=== PATIENT | male | born 1960 | race American Indian/Alaskan Native ===

== ENCOUNTER 2017-06-01 08:57 | Day surgery (SDC) | payer BC ==
[2017-06-01 09:12] VITALS: BMI 31.8
[2017-06-01] MEDS ORDERED: Absorbable Gelatin Sponge Size 100 ONE (11:08)
[2017-06-01] MEDS ORDERED: Bupivacaine 0.5% Inj(30mL) ONE (11:08)
[2017-06-01] MEDS ORDERED: Thrombin Topical 5,000 Int Units Spray Kit ONE (11:08)
[2017-06-01] MEDS ORDERED: Lidocaine 4% (Laryng-O-Jet) Kit MM ONE (11:23)
[2017-06-01] MEDS ORDERED: Propofol 10 mg/ml Inj (20 ML) ONE (11:23)
[2017-06-01] MEDS ORDERED: Succinylcholine 200 mg/10 ml Inj IV ONE (11:23)
[2017-06-01] MEDS ORDERED: Rocuronium 10 mg/ml (5 ml) ONE (11:23)
[2017-06-01] MEDS ORDERED: Midazolam 2 MG/2 ML VIAL ONE ×2 (11:47→14:02)
[2017-06-01] MEDS ORDERED: Lactated Ringer's 1,000 ML IV ONE ×2 (11:55→13:38)
[2017-06-01] MEDS ORDERED: Bupivacaine HCl 0.5% PF (30 ml) Inj ONE (12:16)
[2017-06-01] MEDS ORDERED: Desflurane Inhalation Anesthetic Liq (240 ml) ONE (12:25)
[2017-06-01] MEDS: MethylPREDNISolone Depo 40 mg/ml Inj ONE ×2 (13:01→13:30)
[2017-06-01] MEDS ORDERED: Bacitracin Opht OINT 3.5GM OU ONE (13:35)
[2017-06-01] MEDS ORDERED: Oxycodone/Acetaminophen 5/325 mg Tab PO PRN (13:49)
--- NOTE | 2017-06-01 13:57 | CP.PCM.PN ---
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 Patient counseled on the risks of addiction, physical or psychological dependence, and overdose associated with opioid drugs and the danger of taking opioid drugs with alcohol and other central nervous system depressants, and cautioned patient on storage and disposal. Objective - Vital Signs/Intake and Output Vital Signs (last 24 hours): Temp Pulse Resp BP Pulse Ox 97.6 F 70 18 159/86 H 97 06/01/17 09:56 06/01/17 10:04 06/01/17 09:56 06/01/17 09:56 06/01/17 09:56 Intake and Output: 06/01/17 06/01/17 06:59 18:59 Intake Total 1000 Balance 1000 - Medications Medications: Current Medications Oxycodone/Acetaminophen (Percocet 5/325 Mg Tab) 1 tab PO Q4 PRN PRN Reason: Pain, moderate (4-7) Stop: 06/04/17 13:50
[2017-06-01] MEDS ORDERED: Midazolam 2 MG/2 ML VIAL IVP PRN (14:02)
[2017-06-01] MEDS ORDERED: HYDROmorphone 0.5 mg/0.5 ml ISec IVP PRN (14:02)
--- NOTE | 2017-06-01 14:08 | PCM.ANESB4 ---
Infraclavicular Block - Femoral Nerve Block Date of Procedure: 06/01/17 Anesthesiologist: Xiomy Pre-Procedure Diagnosis: Left carpal tunnel syndrome Post-Procedure Diagnosis: Same Procedure Performed: Brachial Plexus at the Infraclavicular area Left - Procedure Infraclavicular Block: The procedure was explained to the patient that it is for the post-operative pain management. Consent was obtained after a thorough discussion with the patient regarding the benefits and possible complications of local anesthetic block of the brachial plexus at the infraclavicular area. The patient was brought to the operating room and standard monitors were applied. Time-out was held with the circulating nurse to confirm the correct surgery and the appropriate block. Under general anesthesia at request of patient after increased risk of intraneural injection while under general anesthesia explained , patient's head was gently rotated away from the operative ____left____ shoulder and the area medial to the coracoid process and inferior to the clavicle was carefully palpated. The ultrasound transducer was then applied to the skin in the transverse plane and the brachial plexus was visualized surrounding the axillary artery and deep to the pectoralis major and minor muscles. After thorough identification, this area was prepped with Betadine solution three times and 1 % Lidocaine was injected subcutaneously for topical anesthesia. At this point, a #21 gauge Stimuplex 4-inch needle was inserted cephalad to the ultrasound transducer and inferior to the clavicle in-plane towards the posterior aspect of the axillary artery. Needle advancement was performed carefully under ultrasound visualization. Nerve stimulator was used and twitch of the affected extremity including fingers, hand, wrist and elbow was obtained at current of __0.4___MA. After repeated negative aspiration, __2___cc of __0.5_ __% ____bupivicaine with 1:200,000 epinephrine was injected and this was followed with __28____ cc of __0.5 % ____bupivicaine with 1:200, 000 epinephrine . Under ultrasound guidance the local anesthetics were observed surrounding the cords of the brachial plexus. The needle was removed intact and sterile dressing was applied. The patient had stable vital signs. The patient tolerated the infraclavicular block of the brachial plexus well with stable vital signs was prepared for subsequent surgery.
[2017-06-01] MEDS ORDERED: Lactated Ringer's 1,000 ML IV SCH (14:15)
--- NOTE | 2017-06-01 14:25 | PCM.SURG1 ---
Surgeon's Initial Post Op Note - Surgeon's Notes Surgeon: Andreina Medical Terminologist: SHAQUILLE Nichols Type of Anesthesia: General Endo, Block Regional Anesthesia Administered By: DR Nathaniel Leahy Pre-Operative Diagnosis: Refractorty lateral epicondylitis L elbow. Carpal tunnel syndrome L wrist Operative Findings: lateral epicondylitis (refractory). carpal tunnel syndrome L wrist Post-Operative Diagnosis: as above. lipoma carpal canal. tenosynovitis flexor tendons. compression median nerve. refractory latral epicondylitis Operation Performed: release L lateral epicondylar musculature. \release L carpal tunnel. partial median neurolysis. partial flexor tenosynovectomy. release transverse carpal ligament. release lateral epindylar muscutre. partial lateral epicondylectomy Specimen/Specimens Removed: tenosynovium. epineurium. carpal liagment ( transverse) Estimated Blood Loss: EBL {In ML}: 5 Blood Products Given: N/A Drains Used: No Drains Post-Op Condition: Good Date of Surgery/Procedure: 06/01/17 Time of Surgery/Procedure: 12:30 (time in room/ 11:40/larry indcution time 1140)
[2017-06-01 15:00] VITALS: RESP 18
[2017-06-01 18:27] VITALS: BP 154/90; PULSE 79; TEMP 97.4; O2SAT 97
--- NOTE | 2017-06-03 15:28 | OP ---
PROCEDURE DATE: 06/01/2017 PREOPERATIVE DIAGNOSIS: 1. Refractory left lateral epicondylitis, left elbow. 2. Carpal tunnel syndrome, left wrist. POSTOPERATIVE DIAGNOSES: 1. Refractory lateral epicondylitis, left elbow. 2. Carpal tunnel syndrome. 3. Lipoma, carpal canal. 4. Tenosynovitis, flexor tendons. 5. Compression of the median nerve with inflammation of the epineurium and again refractory lateral epicondylitis. OPERATION PERFORMED: 1. Release, left lateral epicondylar musculature. 2. Release, left median nerve, partial median neurolysis, partial flexor tenosynovectomy. 3. Release and partial excision of transverse carpal ligament. 4. Excision of lipoma, carpal canal. 5. Partial lateral epicondylectomy, left elbow. 6. Application of splint. SURGEON: Luis Hdz MD. DEBT MANAGEMENT COUNSELOR: Elsa Levin, certified registered nursing assistant store manager sales. TYPE OF ANESTHESIA: General endotracheal anesthesia with regional block. ANESTHESIA ADMINISTERED BY: Nathaniel Stauffer MD. BLOOD PRODUCTS GIVEN: None. DRAINS: None. POSTOPERATIVE CONDITION: Stable. TIME OF SURGERY: 1140 Incision time. Time in the room 1230. 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 The patient also has numbness and tingling in the first three fingers of the left hand. The patient has been refractory over a long period of time to conservative management consisting of activity modification, injection, and therapy. Pros, cons, risks, and benefits of surgical approach were discussed. The possibility of mechanical failure, infection, thromboembolic disease, secondary or tertiary surgery was discussed. The patient can no longer withstand the discomfort and wished the surgery to be accomplished. DESCRIPTION OF PROCEDURE: After having obtained informed consent in the above fashion; after having identified side, site, and procedure, and a critical pause/time-out; after the satisfactory induction of the anesthetic, the patient identified as Rodrick Camilo in the supine position with all bony prominences well padded. The left upper extremity was prepped and free draped in a usual fashion for upper extremity surgery. The tourniquet had been applied, but was not yet inflated. The operation was performed under 2.5 loupe magnification eyeglasses. After exsanguinating the limb using a 4-inch Esmarch bandage, the tourniquet, which had been applied, was inflated to 250 mmHg. An incision that was described, was centered along the lateral epicondyle, extending proximally and distally. After having identified side, site, and procedure, and a critical pause/time-out, the incision is carried down superficial to the lateral epicondylar ridge to the lateral epicondyle, superficial to the extensor tendon. The skin incision was carried down through the skin and subcutaneous tissue. Hemostasis was controlled with electrocautery. Stay sutures were placed. At this point in time, using electrocautery at a very low thermal setting, the tissue anterior to posterior was divided from the lateral epicondylar ridge to the lateral epicondyle and to the point of the extensor carpi radialis longus tendon. The extensor carpi radialis longus tendon was divided and the underlying extensor carpi radialis brevis tendon is noted. The pathology was noted to be in the extensor carpi radialis brevis tendon. There is evidence of a micro tear in the orbicular ligament. At this point in time, the degeneration in the extensor carpi radialis brevis was identified and using #15 blade, this area of degeneration was excised and sent for pathology. The wound was thoroughly irrigated. A partial lateral epicondylectomy was accomplished using the bur. This having been accomplished, great care was taken to control hemostasis. Bone wax deployed, and at this point in time, the extensor carpi radialis longus was repaired with interrupted sutures in an inverted mattress type to prevent irritation. It should be noted that the degeneration of the extensor carpi radialis brevis had been excised carefully. With this having been accomplished, attention now was turned to the carpal tunnel, an incision was described in the median palmar crease deviating radially at the distal crease, deviating back ulnarly. The skin incision was carried down through the skin and subcutaneous tissue. Flap was elevated intact. The entire extent of the transverse carpal ligament was identified and this having been identified, the wound was thoroughly irrigated. It should be noted that great care was taken to avoid injury to the palmar cutaneous branch of the median nerve as well as the motor branch of the median nerve. This having been accomplished, the palmaris longus tendon was reflected and the entire extent of the transverse carpal ligament from the distal forearm to the palm is released. Great care was taken to avoid injury to the underlying median nerve. The carpal tunnel was released. The portion of the transverse carpal ligament is excised. Hemostasis was controlled. A partial flexor tenosynovectomy was accomplished using the Mobley dissecting scissors. Partial flexor tenosynovectomy having been accomplished. Attention was turned to the median nerve. There was found to be marked compression of the median nerve with inflammation of the epineurium. Under direct vision, using a tenotomy scissors, a partial median neurolysis was accomplished to the point of the distal branch of the digital nerves. Great care was taken to spare and protect the motor branch of the median nerve as well as the palmar cutaneous branch. Partial median neurolysis having been accomplished, it should be noted that on exposure of the carpal canal, there was found to be a marked lipoma of the carpal canal. This was carefully excised. Hemostasis was controlled and great care was taken to avoid injury to any neural structures. The lipoma of the carpal canal was excised. The wound was thoroughly irrigated. Closure was in layers with interrupted Vicryl and nylon sutures. Attention was turned to the elbow. The elbow was thoroughly irrigated. Again, repair of the extensor carpi radialis longus was accomplished with inverted sutures as well as closure with Vicryl and 2-0 Quill plastic closure. Reymundo Johnson compression dressing and splint were applied. Neurocirculatory status intact in recovery. Luis Hdz MD
== END 2017-06-01 19:00 | disposition home or self-care (01) ==
LOC: H.OPSURG 08:57
PROVIDERS: ATTEND Orthopaedic Surgery
DX: S46.112D Strain of muscle, fascia and tendon of long head of biceps, left arm, subsequent encounter (principal); X58.XXXD Exposure to other specified factors, subsequent encounter; D17.22 Benign lipomatous neoplasm of skin and subcutaneous tissue of left arm; G56.02 Carpal tunnel syndrome, left upper limb
CPT/HCPCS: 25115; 64721; 82948; 88305; J0330; J0690; J1030; J2001; J2250; J2704; J3010; J7030; J7120